=== PATIENT | male | born 1990 | race Caucasian/White ===

== ENCOUNTER → 2025-03-04 07:38 | Outpatient (REF) | payer OTHER, SELFPAY | LOC: RAD 07:38 | PROVIDERS: ATTENDING PHYSICIAN Physician Assistant Medical | DX: Z00.00 Encounter for general adult medical examination without abnormal findings (principal); R22.42 Localized swelling, mass and lump, left lower limb | CPT/HCPCS: 73564 ==

== ENCOUNTER → 2025-03-13 15:35 | Outpatient (REF) | payer OTHER, SELFPAY | LOC: HWRAD 15:35 | PROVIDERS: ATTENDING PHYSICIAN Physician Assistant Medical | DX: R22.42 Localized swelling, mass and lump, left lower limb (principal) | CPT/HCPCS: 76882 ==

== ENCOUNTER → 2025-04-08 07:24 | Outpatient (REF) | payer OTHER, SELFPAY | LOC: MRI 3T 07:24 | PROVIDERS: ATTENDING PHYSICIAN Student in an Organized Health Care Education/Training Program; FAMILY PHYSICIAN Physician Assistant Medical | DX: M25.562 Pain in left knee (principal) | CPT/HCPCS: 73721 ==